=== PATIENT | male | born 1940 | race Caucasian/White ===

== ENCOUNTER → 2017-03-06 | Day surgery (SDC) | payer MEDICARE ==
[2017-03-01 15:36] VITALS: BMI 32.3
[~2017-03-06] MED LIST: BUPIVACAINE (PF) 0.25% 30 ML VIAL SQ ONE; DEXAMETHASONE SOD PHOSPHATE 10 MG/ML 1 ML VIAL IV ONE; GLYCOPYRROLATE 0.2 MG/ML 2 ML VIAL ONE; HEPARIN SODIUM,PORCINE 5,000 UNIT/ML 1 ML VIAL SQ ONE; HYDROcodone/APAP 5-325MG 1 EACH TAB PO PRN; KETOROLAC 30 MG/ML 1 ML VIAL ONE; LACTATED RINGERS 1,000 ML IV ONE; LIDOCAINE 1% 20 ML VIAL (10MG/ML) FOR IV START INTRADERMA ONE; LIDOCAINE 1% INJ 10MG/ML (20 ML MDV) ONE; MIDAZOLAM 2 MG/2 ML VIAL IV PRN; MIDAZOLAM 2 MG/2 ML VIAL ONE; NALOXONE 0.4 MG/ML 1 ML VIAL IV PRN; NEOSTIGMINE 1 MG/ML 10 ML VIAL ONE; ONDANSETRON 4 MG/2 ML VIAL IVP ONE; PROPOFOL 10 MG/ML 20 ML VIAL IV ONE; ROCURONIUM BROMIDE 10 MG/ML 10 ML VIAL IV ONE; SCOPOLAMINE 1.5MG/72HR PATCH TRANSDERM ONE; SUCCINYLCHOLINE CHLORIDE 100 MG/5 ML SYR IV ONE; TAMSULOSIN 0.4 MG CAP.ER.24H PO STA; ceFAZolin IN SWFI 2 GM/20 ML SYRINGE IVP ONE; fentaNYL (PF) 50 MCG/ML 2 ML AMP ONE
--- NOTE | 2017-03-06 09:45 | P.GSHP ---
History of Present Illness H&P Date: 03/06/17 Chief Complaint: Left inguinal hernia Patient underwent operative repair of a left inguinal hernia February 2016. This was done open with a 3" x 6" Prolene mesh. He had a indirect hernia sac that was ligated at that time. Recently he was seen back in the office complaining of a new bulge in the left groin. Some constipation at times. No nausea or vomiting. No testicular pain. Patient did have some issues with Dermabond last surgery and would like to avoid that again if possible. It should be noted that the indirect hernia last surgery was sliding and the sigmoid colon was adherent to the hernia sac. Past Medical History Past Medical History: Diabetes Mellitus, GERD/Reflux, Hypertension, Osteoarthritis (OA) Additional Past Medical History / Comment(s): hx. elevated uric acid, hx. PERIPHERAL EDEMA, diet controlled diabetes History of Any Multi-Drug Resistant Organisms: None Reported Past Surgical History: Hernia Repair, Joint Replacement, Tonsillectomy Additional Past Surgical History / Comment(s): BILATERAL KNEE REPLACEMENT, REDO ON RIGHT KNEE. Past Anesthesia/Blood Transfusion Reactions: No Reported Reaction Smoking Status: Former smoker - Past Family History Father Family Medical History: Cancer Additional Family Medical History / Comment(s): Colon Medications and Allergies Home Medications Medication Instructions Recorded Confirmed Type Allopurinol [Zyloprim] 300 mg PO QAM 06/18/14 03/01/17 History Aspirin 81 mg PO DAILY 06/18/14 03/01/17 History Furosemide [Lasix] 10 mg PO BID 06/18/14 03/01/17 History Losartan Potassium 100 mg PO QAM 06/18/14 03/01/17 History Meloxicam [Mobic] 7.5 mg PO BID 06/18/14 03/01/17 History Multivitamin [Men's Multi-Vitamin] 1 each PO DAILY 06/18/14 03/01/17 History Omeprazole 40 mg PO AC-BRKFST 06/18/14 03/01/17 History [place]-3 Fatty Acids [[place]-3] 1,000 mg PO DAILY 03/01/17 03/01/17 History Allergies Allergy/AdvReac Type Severity Reaction Status Date / Time adhesive tape AdvReac Rash/Hives Verified 03/01/17 15:32 Penicillins AdvReac CHILLS Verified 03/01/17 15:08 Surgical - Exam Physical exam: General: Well-developed, well-nourished HEENT: Normocephalic, sclerae nonicteric Abdomen: Nontender, nondistended, reducible left inguinal hernia Extremities: No edema Neuro: Alert and oriented Assessment and Plan (1) Left inguinal hernia Narrative/Plan: Patient with a recurrent left inguinal hernia after open repair. We'll proceed with laparoscopic da Siddharth assisted repair. Risks of bleeding, infection, bladder and bowel injury, recurrence, chronic pain, numbness, conversion were discussed. He understands and wishes to proceed. If a contralateral hernia is identified we'll repair that as well. Status: Acute Code(s): K40.90 - UNIL INGUINAL HERNIA, W/O OBST OR GANGR, NOT SPCF RECUR SNOMED Code(s): 524457179
[2017-03-06 13:17] VITALS: RESP 16
[2017-03-06] MEDS: LACTATED RINGERS 1,000 ML IV SCH ×2 (13:46→14:05)
[2017-03-06 13:47] LABS: Basophils # (A) 0.1 k/uL (0-0.2); Basophils % (A) 1 %; CH 31.2; CHCM 34.2; Eosinophils # (A) 0.3 k/uL (0-0.7); Eosinophils % (A) 4 %; HCT 44.9 % (39.0-53.0); HDW 3.07; Luc # (Auto) 0.12; Luc % (Auto) 2; Lymphocytes # (A) 1.4 k/uL (1.0-4.8); Lymphocytes % (A) 23 %; MCH 30.8 pg (25.0-35.0); MCHC 33.5 g/dL (31.0-37.0); MCV 91.9 fL (80.0-100.0); Mean Platelet Volume 8.8; Monocytes # (A) 0.3 k/uL (0-1.0); Monocytes % (A) 6 %; Neutrophils # (A) 3.8 k/uL (1.3-7.7); Neutrophils % (A) 65 %; RBC 4.88 m/uL (4.30-5.90); RDW 15.1 % (11.5-15.5); WBC (Perox) 6.26
[2017-03-06 13:50] LABS: Glucose,Whole Blood 110 mg/dL (75-99)
[2017-03-06 14:08] LABS: ALT 57 U/L (21-72); AST 40 U/L (17-59); Alkaline Phosphatase 80 U/L (38-126); Anion Gap 11 mmol/L; Blood Urea Nitrogen 21 mg/dL (9-20); Calcium 9.6 mg/dL (8.4-10.2); Carbon Dioxide 26 mmol/L (22-30); Chloride 106 mmol/L (98-107); Glucose 121 mg/dL (74-99); Non-African American GFR(MDRD) 58 (>60 ml/min/1.73 sqM); Potassium 4.6 mmol/L (3.5-5.1); Sodium 143 mmol/L (137-145); Total Protein 7.9 g/dL (6.3-8.2)
[2017-03-06 17:11] VITALS: TEMP 97.2
--- NOTE | 2017-03-06 17:13 | P.OP ---
Date of Procedure: 03/06/17 Procedure(s) Performed: PREOPERATIVE DIAGNOSIS: Recurrent left inguinal hernia POSTOPERATIVE DIAGNOSIS: Same PROCEDURE: Laparoscopic repair recurrent left inguinal hernia with the da Siddharth robot assistance with mesh SURGEON: Jackie EBL: Minimal ANESTHESIA: General COMPLICATIONS: None OPERATIVE PROCEDURE: Patient was placed in the operating table in the supine position. The patient was placed under general anesthesia. The patient was then placed in lithotomy. The abdomen was prepped and draped in usual sterile fashion. A small curvilinear supraumbilical incision was made. The fascia was retracted anteriorly with Phoenix forceps. The Veress needle was inserted. The saline drop test was normal. Insufflation took place to 15 mmHg. a 5 mm trocar was placed into the peritoneal cavity which was later switched to a 12 mm trocar. 2 additional 8 mm trochars were placed in the right upper quadrant and left upper quadrant under visualization. The robotic arms were then brought in and docked into place. The fenestrated bipolar was used in the left arm and the laparoscopic timothy was utilized in the right arm. A 30 12 mm scope was used in the up position. The peritoneal cavity was inspected. The patient had evidence of a recurrent left inguinal hernia. A large portion of the sigmoid colon was adherent to the hernia sac and making up a good portion of the recurrent hernia. The amount of colon within the hernia was approximately 10-15 cm. The patient's right side was also inspected. There was a small depression at the internal inguinal ring consistent with a very early internal inguinal hernia. He was decided that given the patient's age and the small nature of this depression that we would leave this intact. The peritoneum was incised in a horizontal fashion cephalad to the internal inguinal ring. Following that careful dissection of the preperitoneal space took place. This took place using both electrocautery, sharp dissection but primarily blunt dissection. Visualization of the pubic tubercle and Mawxell's ligament took place medially. Full dissection took place laterally as well. The patient's hernia was able to be reduced. The dissection took place down to and overlying the iliac vessels. A small tear in the peritoneum did take place during this dissection which was later closed using a short running 3-0 Vicryl stitch. Once we had adequate space the 15 x 10 progrip mesh was advanced into the preperitoneal space and flattened out appropriately to cover all potential hernia sites. No sutures were used. The peritoneal defect was then closed using a locking 2-0 VLok suture. The pneumoperitoneum was then evacuated. The fascia at the 12 mm site was closed using the Jose Pelaez technique and an 0 Vicryl stitch. The skin of all 3 sites was closed using a 4-0 Monocryl stitch. Steri-Strips and sterile dressings were applied. DISPOSITION: Stable to recovery room
[2017-03-06] MEDS: HYDROmorphone 0.5 MG/0.5 ML SYRINGE IVP PRN ×4 (17:20→17:43)
[2017-03-06 18:22] LABS: Glucose,Whole Blood 165 mg/dL (75-99)
[2017-03-06 18:37] VITALS: BP 96/51; PULSE 80
== END ==
LOC: OR 11:41
PROVIDERS: ATTEND Surgery
DX: K40.91 Unilateral inguinal hernia, without obstruction or gangrene, recurrent (principal); E11.9 Type 2 diabetes mellitus without complications; K21.9 Gastro-esophageal reflux disease without esophagitis; I10 Essential (primary) hypertension; M19.90 Unspecified osteoarthritis, unspecified site; Z96.653 Presence of artificial knee joint, bilateral; Z87.891 Personal history of nicotine dependence; Z79.82 Long term (current) use of aspirin; Z79.899 Other long term (current) drug therapy; Z88.0 Allergy status to penicillin; Z91.048 Other nonmedicinal substance allergy status
CPT/HCPCS: 93005; 80053; 85025; 49651; C1781; J2250; J1644; J1100; J2710; J0690; J2405; J2001; J3010; J1885; J0330; J2704; J1170

== ENCOUNTER 2018-04-13 20:17 | Emergency (ER) | payer MEDICARE ==
[2018-04-13 20:29] VITALS: RESP 16; TEMP 97.7
--- NOTE | 2018-04-13 21:40 | ED ---
Lower Extremity Injury HPI - General Chief Complaint: Extremity Injury, Lower Stated Complaint: Fall, knee injury Time Seen by Provider: 04/13/18 20:46 Source: patient, EMS Mode of arrival: EMS Limitations: no limitations - History of Present Illness Initial Comments: 78-year-old male patient presents to the emergency department today for evaluation of left knee pain and swelling after rinsing a fall. Patient states he was cleaning up a mass on the floor, bending forward when he lost his balance and fell for checking his knee on a cabinet. Patient states that he does have history of total knee arthroplasty to this leg. Patient states that at rest the leg does hurt whenever he attempts to straighten it fully or ambulate he does have increased pain to the bilateral lateral knee. Denies any numbness or tingling to the leg. Patient denies hitting his head or losing consciousness with the fall. States he does take a blood thinning medication, but again denies any head injury. Patient denies any headache, neck pain, back pain, chest pain, shortness of breath, dizziness, weakness, abdominal pain, nausea, vomiting, or difficulties with bowel movements or urination. - Related Data Home Medications Medication Instructions Recorded Confirmed Allopurinol [Zyloprim] 300 mg PO QAM 06/18/14 04/13/18 Losartan Potassium 100 mg PO QAM 06/18/14 04/13/18 Meloxicam [Mobic] 7.5 mg PO BID 06/18/14 04/13/18 Multivitamin [Men's Multi-Vitamin] 1 tab PO DAILY 06/18/14 04/13/18 Omeprazole 40 mg PO AC-BRKFST 06/18/14 04/13/18 Aspirin EC [Ecotrin Low Dose] 81 mg PO DAILY 04/13/18 04/13/18 Cholecalciferol [Vitamin D3] 5,000 unit PO DAILY 04/13/18 04/13/18 Furosemide [Lasix] 20 mg PO BID 04/13/18 04/13/18 [place] 3-6-9 1 cap PO BID 04/13/18 04/13/18 Previous Rx's Medication Instructions Recorded Acetaminophen-Codeine 300-30mg 1 tab PO Q6H PRN #12 tablet 04/13/18 [Tylenol #3] Allergies Allergy/AdvReac Type Severity Reaction Status Date / Time adhesive tape AdvReac Rash/Hives Verified 04/13/18 20:41 Penicillins AdvReac CHILLS Verified 04/13/18 20:41 Review of Systems ROS Statement: Those systems with pertinent positive or pertinent negative responses have been documented in the HPI. ROS Other: All systems not noted in ROS Statement are negative. Past Medical History Past Medical History: Diabetes Mellitus, GERD/Reflux, Hypertension, Osteoarthritis (OA) Additional Past Medical History / Comment(s): hx. elevated uric acid, hx. 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 Vital signs upon presentation are temperature 97.7F, pulse 91, respirations 16, blood pressure 132/67, pulse ox 95% on room air.) Eye exam: Present: normal appearance, PERRL, EOMI. Absent: scleral icterus, conjunctival injection, periorbital swelling Neck exam: Present: normal inspection, full ROM, other (Nontender, no step-off, no deformity to firm midline palpation of the posterior cervical spine. Full range of motion without pain or limitation.). Absent: tenderness, meningismus, lymphadenopathy Respiratory exam: Present: normal lung sounds bilaterally. Absent: respiratory distress, wheezes, rales, rhonchi, stridor Cardiovascular Exam: Present: regular rate, normal rhythm, normal heart sounds. Absent: systolic murmur, diastolic murmur, rubs, gallop, clicks GI/Abdominal exam: Present: soft, normal bowel sounds. Absent: distended, tenderness, guarding, rebound, rigid Extremities exam: Present: full ROM (Full range of motion however does report increased pain at full extension), tenderness (Tenderness over the medial and lateral left knee), normal capillary refill, other (Skin to the left lower external is pink, warm, and dry. Cap refills less than 2 seconds. Pedal and posttibial pulses are 2+ and equal bilaterally. Patient does have mild swelling surrounding the left anterior knee. No ecchymosis or surface trauma.). Absent: normal inspection, pedal edema, joint swelling, calf tenderness Back exam: Present: normal inspection, other (Nontender, no step-off, no deformity to firm midline palpation of the thoracic and lumbar vertebrae. Full range of motion without pain or limitation.). Absent: vertebral tenderness Neurological exam: Present: alert, oriented X3, CN II-XII intact Psychiatric exam: Present: normal affect, normal mood Skin exam: Present: warm, dry, intact, normal color. Absent: rash Course Vital Signs 04/13/18 20:21 Temperature 97.7 F Pulse Rate 91 Respiratory 16 Rate Blood Pressure 132/67 O2 Sat by Pulse 95 Oximetry Medical Decision Making - Medical Decision Making 78 year-old male patient presented to the emergency department today for evaluation after expressing a fall knee injury. Physical examination did reveal some soft tissue swelling over the anterior aspect of the knee. Patient had no pain with valgus or varus maneuver. He did have full range of motion but did report increased pain with full extension. X-ray showed no acute osseous abnormalities. Prosthesis appeared to be in good position. No evidence of effusion. At time of discharge patient was unable to bear weight on the leg stating that the knee was giving out on him. We did perform CT of the knee was somewhat limited due to artifact however no showed no evidence of acute abnormalities. Did discuss findings and results with the patient. We did put any immobilizer, he is able to ambulate with this. He'll be discharged home to follow-up with his primary care physician for recheck in 1-2 days. Return parameters are discussed in detail. They verbalize understanding and agree with this plan. - Radiology Data Radiology results: report reviewed, image reviewed Reviews of left knee are obtained. Report was reviewed in its entirety. Impression by Dr. Chand shows no fracture seen. Soft tissue swelling calcification above the patella. CT left knee without contrast was obtained. Report is reviewed in its entirety. Impression by Dr. Chand shows limited exam shows no fracture. Prosthesis appears in good position. No sign of joint effusion. Disposition Clinical Impression: Contusion of left knee, Other instability, left knee Disposition: HOME SELF-CARE Condition: Good Instructions: Contusion in Adults (ED), Knee Pain (ED), Knee Immobilizer (ED) Additional Instructions: Use Jayesh wrap for comfort and support. Keep knee elevated. Rest. Follow-up with her primary care physician for recheck in 1-2 days. Have repeat x-rays performed in 7-10 days if pain symptoms persist. Return to the emergency department immediately for any new, worsening, or concerning symptoms. Prescriptions: Acetaminophen-Codeine 300-30mg [Tylenol #3] 1 tab PO Q6H PRN #12 tablet PRN Reason: Pain Is patient prescribed a controlled substance at d/c from ED?: No Referrals: Jovon Colorado MD [Primary Care Provider] - 1-2 days Time of Disposition: 00:28
--- NOTE | 2018-04-13 21:49 | XR ---
EXAMINATION TYPE: XR knee complete LT DATE OF EXAM: 04/13/2018 COMPARISON: NONE HISTORY: Knee pain TECHNIQUE: 3 views FINDINGS: There is left knee prosthesis. Components are in anatomic position. I see no fracture. Ther e is no sign of joint effusion. There is some calcification above the patella that could relate to an old injury. There is soft tissue swelling above the patella. IMPRESSION: No fracture seen. Soft tissue swelling and calcification above the patella.
[2018-04-13] MEDS ORDERED: ACET/COD 300 MG/30 MG STARTER PACK 6 TAB BTL PO STA (22:38)
--- NOTE | 2018-04-13 23:45 | CT ---
EXAMINATION TYPE: CT knee LT wo con DATE OF EXAM: 04/13/2018 COMPARISON: HISTORY: left knee pain after twisting injury CT DLP: 305.3 mGycm Automated exposure control for dose reduction was used. FINDINGS: Exam is limited by metal artifact. There is a left knee prosthesis. There is some calcification in th e soft tissues above the patella. I see no sign of joint effusion. I see no fracture. I see no focal bone destruction. The prosthesis components appear in anatomic position. IMPRESSION: LIMITED EXAM SHOWS NO FRACTURE. PROSTHESIS APPEARS IN GOOD POSITION.
[2018-04-14 01:13] VITALS: BP 122/72; PULSE 84
== END 2018-04-14 00:43 | disposition home or self-care (01) ==
LOC: EC 20:17
DX: S80.02XA Contusion of left knee, initial encounter (principal); I10 Essential (primary) hypertension; K21.9 Gastro-esophageal reflux disease without esophagitis; E11.9 Type 2 diabetes mellitus without complications; M19.90 Unspecified osteoarthritis, unspecified site; Z87.891 Personal history of nicotine dependence; Z88.0 Allergy status to penicillin; Z91.048 Other nonmedicinal substance allergy status; Z79.1 Long term (current) use of non-steroidal anti-inflammatories (NSAID); Z79.82 Long term (current) use of aspirin; Z79.899 Other long term (current) drug therapy; Z96.653 Presence of artificial knee joint, bilateral; W01.0XXA Fall on same level from slipping, tripping and stumbling without subsequent striking against object, initial encounter; Y93.E5 Activity, floor mopping and cleaning; Y92.009 Unspecified place in unspecified non-institutional (private) residence as the place of occurrence of the external cause
CPT/HCPCS: 73562; 73700; 99284; L1830

== ENCOUNTER → 2022-10-24 | Outpatient (CLI) | payer MEDICARE ==
[2022-10-24 16:07] LABS: Blood Urea Nitrogen 25.2 mg/dL (9.0-27.0); Carbon Dioxide 26.3 mmol/L (21.6-31.8); Chloride 103 mmol/L (96-109); Potassium 4.9 mmol/L (3.5-5.5); Sodium 141 mmol/L (135-145)
[2022-10-24 16:54] LABS: HCT 48.1 % (39.6-50.0); HGB 16.1 d/dL (12.0-15.0); MCH 31.7 pg (27.0-32.0); MCHC 33.5 d/dL (32.0-37.0); MCV 94.7 FL (80.0-97.0); Mean Platelet Volume 12.6 FL (9.5-12.2); NRBC Per 100 WBC 0 X 10*3/uL (0.00-0.01); Platelet Count 163 X 10*3/uL (140-440); RBC 5.08 X 10*6/uL (4.40-5.60); RDW 14.6 % (11.5-14.5); WBC 6.93 X 10*3/uL (4.50-10.00)
== END | disposition home or self-care (01) ==
LOC: LABWHC1 11:26
PROVIDERS: ATTEND Internal Medicine Interventional Cardiology
DX: Z01.812 Encounter for preprocedural laboratory examination (principal); I25.10 Atherosclerotic heart disease of native coronary artery without angina pectoris
CPT/HCPCS: 36415; 80051; 82565; 84520; 85027

== ENCOUNTER → 2022-10-27 | Day surgery (SDC) | payer MEDICARE ==
[2022-10-24 09:12] VITALS: BMI 27.8
[~2022-10-27] MED LIST changes: +ALPRAZolam 0.25 MG TAB PO PRN; +ALPRAZolam 0.5 MG TAB PO PRN; +ASPIRIN 325 MG TAB PO STA; -BUPIVACAINE (PF) 0.25% 30 ML VIAL SQ ONE; -DEXAMETHASONE SOD PHOSPHATE 10 MG/ML 1 ML VIAL IV ONE; -GLYCOPYRROLATE 0.2 MG/ML 2 ML VIAL ONE; -HEPARIN SODIUM,PORCINE 5,000 UNIT/ML 1 ML VIAL SQ ONE; -HYDROcodone/APAP 5-325MG 1 EACH TAB PO PRN; -KETOROLAC 30 MG/ML 1 ML VIAL ONE; -LACTATED RINGERS 1,000 ML IV ONE; -LIDOCAINE 1% 20 ML VIAL (10MG/ML) FOR IV START INTRADERMA ONE; -LIDOCAINE 1% INJ 10MG/ML (20 ML MDV) ONE; -MIDAZOLAM 2 MG/2 ML VIAL IV PRN; -MIDAZOLAM 2 MG/2 ML VIAL ONE; -NALOXONE 0.4 MG/ML 1 ML VIAL IV PRN; -NEOSTIGMINE 1 MG/ML 10 ML VIAL ONE; +NITROGLYCERIN SL TABS 0.4 MG TAB SUBLINGUAL PRN; -ONDANSETRON 4 MG/2 ML VIAL IVP ONE; -PROPOFOL 10 MG/ML 20 ML VIAL IV ONE; -ROCURONIUM BROMIDE 10 MG/ML 10 ML VIAL IV ONE; -SCOPOLAMINE 1.5MG/72HR PATCH TRANSDERM ONE; +SODIUM CHLORIDE 0.9% 1,000 ML in EMPTY BAG 1 BAG IV SCH; -SUCCINYLCHOLINE CHLORIDE 100 MG/5 ML SYR IV ONE; -TAMSULOSIN 0.4 MG CAP.ER.24H PO STA; -ceFAZolin IN SWFI 2 GM/20 ML SYRINGE IVP ONE; -fentaNYL (PF) 50 MCG/ML 2 ML AMP ONE
[2022-10-27 08:14] LABS: Glucose,Whole Blood 136 mg/dL (70-110)
== END ==
LOC: CATHCVL 07:45
PROVIDERS: ATTEND Internal Medicine Interventional Cardiology
DX: I25.10 Atherosclerotic heart disease of native coronary artery without angina pectoris (principal); I10 Essential (primary) hypertension; E78.5 Hyperlipidemia, unspecified; E11.9 Type 2 diabetes mellitus without complications; I73.9 Peripheral vascular disease, unspecified; F17.210 Nicotine dependence, cigarettes, uncomplicated; Z79.899 Other long term (current) drug therapy

== ENCOUNTER 2022-10-28 09:46 | Day surgery (SDC) | payer MEDICARE ==
[~2022-10-28 09:46] MED LIST changes: +ATORVASTATIN 80 MG TAB PO STA; +HEPARIN SODIUM,PORCINE 10,000 UNIT in SODIUM CHLORIDE 0.9% 1,000 ML IRRIGATION PRN; -SODIUM CHLORIDE 0.9% 1,000 ML in EMPTY BAG 1 BAG IV SCH
[2022-10-28] MEDS ORDERED: SODIUM CHLORIDE 0.9% 1,000 ML IV ONE (09:56)
[2022-10-28 10:14] LABS: Glucose,Whole Blood 134 mg/dL (70-110)
[2022-10-28 10:15] VITALS: RESP 16
[2022-10-28] MEDS ORDERED: VERAPAMIL 2.5 MG/ML 2 ML AMP ONE (12:14)
[2022-10-28] MEDS ORDERED: HEPARIN SODIUM 1,000 UN/ML (10ML VL) ONE (12:23)
[2022-10-28] MEDS ORDERED: MIDAZOLAM 2 MG/2 ML VIAL IVP ONE (12:40)
[2022-10-28] MEDS ORDERED: LIDOCAINE 1% INJ 10MG/ML (5 ML VIAL-PF) SQ ONE (12:43)
[2022-10-28] MEDS ORDERED: VERAPAMIL SYRINGE (5 MG/10 ML) INTRAARTER ONE (12:46)
[2022-10-28] MEDS ORDERED: CLOPIDOGREL 75 MG TAB ONE (13:03)
[2022-10-28] MEDS ORDERED: CLOPIDOGREL 75 MG TAB PO ONE (13:05)
[2022-10-28] MEDS ORDERED: NITROGLYCERIN 1000MCG/10ML SYRINGE INTRACORON ONE (13:25)
[2022-10-28] MEDS ORDERED: IOPAMIDOL-370 100ML BTL INJ ONE (13:26)
[2022-10-28] MEDS ORDERED: ASPIRIN 81 MG PO PRN (13:42)
[2022-10-28] MEDS ORDERED: RX INFO: IV CONTRAST WAS GIVEN 1 EACH MISC MISCELLANE PRN (13:43)
[2022-10-28] MEDS ORDERED: MAG HYDROX/AL HYDROX/SIMETH 30 ML CUP PO PRN (13:43)
[2022-10-28] MEDS ORDERED: ZOLPIDEM 5 MG TAB PO PRN (13:43)
[2022-10-28] MEDS ORDERED: ATROPINE SULFATE 0.1 MG/ML 10ML SYRINGE IV PRN (13:43)
[2022-10-28] MEDS ORDERED: NITROGLYCERIN SL TABS 0.4 MG TAB SUBLINGUAL PRN (13:43)
[2022-10-28] MEDS ORDERED: SODIUM CHLORIDE 0.9% 1,000 ML in EMPTY BAG 1 BAG IV SCH (13:45)
[2022-10-28] MEDS: SODIUM CHLORIDE 0.9% 1,000 ML in EMPTY BAG 1 BAG IV SCH ×3 (13:56→22:41)
[2022-10-28 17:18] LABS: Glucose,Whole Blood 98 mg/dL (70-110)
--- NOTE | 2022-10-28 18:49 | P.PCN ---
Date of Procedure: 10/28/22 Operative Findings: CARDIAC CATHETERIZATION AND PERCUTANEOUS CORONARY INTERVENTION PERFORMING PHYSICIAN: Richard Smith MD, RPVI PROCEDURE PERFORMED: 1. Selective right and left coronary angiogram 2. Left heart catheterization 4. Successful stenting of the proximal left anterior descending artery using 3.5 x 15 mm Xience BRUNILDA with an excellent angiographic results 5. Adjunctive use of intravascular imaging 6. Ultrasound guided access of the right radial artery INDICATION: The patient is a pleasant 82-year-old gentleman with a past medical history significant for hypertension and dyslipidemia as well as diabetes as well as valvular heart disease with aortic mitral regurgitation and severe pulmonary hypertension. He was seen in the office as recently for chest discomfort. He underwent further investigation including myocardial perfusion imaging stress test and that came in to be abnormal showing an inferior and lateral scar with anterior ischemia. In the light of that he was advised to undergo a heart catheterization COMPLICATION: None APPROACH: Right radial artery LEVEL OF SEDATION: Moderate with a sedation length of 45 minutes PROCEDURE DESCRIPTION: After obtaining an informed consent, the patient was brought to cardiac metallurgical lab technician. Local anesthesia was performed using lidocaine subcutaneously. The right radial artery was cannulated using Seldinger technique, the guidewire passed easily, following that we advanced a 5-Yemeni sheath dilator assembly, the wire and dilator were removed and sheath was flushed. Following that, 2 mg of verapamil along with 5000 unit heparin were given. Selective right and left coronary angiogram using a 6-Yemeni JR4 and JL 3.5 catheters. Following that we did left heart catheterization using 6-Yemeni pigtail catheter. The procedure was completed there was no complication. SELECTIVE CORONARY ANGIOGRAM: The right coronary artery: Large caliber vessel and a dominant vessel. The RCA is chronically occluded in the distal portion and fills by collateral from the left coronary system. The RCA is extremely calcified. Left main: Calcified was mild disease only. Bifurcates into an LCx and LAD The left circumflex: Large caliber vessel appears to be codominant vessel. The LCx appeared to be diffusely diseased up to about 50-60%. Gives rises into an OM1 which has a lesion appeared to be in the range of 60-70% and OM 2 which has a lesion appeared to be in the range of 99.9% but the artery only about 2 mm in diameter. The left anterior descending artery: The proximal LAD has a focal lesion appears to be in the range of 80%. After that the LAD has mild to moderate disease only. The LAD gives rises into the first diagonal branch which has an ostial lesion appears to be in the range of 50% and second diagonal branch which has mild disease only. HEMODYNAMICS: LVEDP was about 12 mmHg was no significant gradient across aortic valve PCI OF PADMINI LAD: Anticoagulation was initiated using heparin with continuous ACT monitoring. Subsequently I did engage the left main using JL 3.5 guiding catheter. I did wire the LAD using a run-through wire. Intravascular ultrasound was performed with manual pullback and that showed a diameter of the LAD around 3.5 mm. The LAD was calcified. At that point I did predilatation using 3 mm balloon and then I deployed 3.5 x 15 mm stent where the stent was positioned under fluoroscopy guidance and deployed under its nominal pressure. Please note that I had difficulties advancing the stent over the wire but I was able to get the stent to the proximal LAD with adjunctive use of guide liner. After that I postdilated the stent using 3.75 mm noncompliant balloon after intravascular ultrasound was performed. The balloon was inflated under 16 christoph for 20 seconds. Final angiogram was performed and showed an excellent angiographic results and the procedure was completed was no complication CONCLUSION: 1. Critical disease involving the proximal LAD was a focal lesion. I did perform successful stenting of the LAD 2. Intermediate to severe diffuse disease involving the AV groove left circumflex with severe disease involving OM1 and OM 2 3. Chronic total occlusion of the right coronary artery POSTPROCEDURE MANAGEMENT: Dual antiplatelet therapy using Aspirin and Plavix for 12 months
[2022-10-28] MEDS ORDERED: ATORVASTATIN 80 MG TAB PO SCH (21:00)
[2022-10-28] MEDS: CHOLECALCIFEROL 125 MCG (5000 IU) TABLET PO SCH (21:17)
[2022-10-28] MEDS: FAMOTIDINE 20 MG TAB PO SCH (21:17)
[2022-10-28] MEDS: TAMSULOSIN 0.4 MG CAP.ER.24H PO SCH (21:17)
[2022-10-29 08:04] VITALS: BP 94/53; PULSE 72; TEMP 97.6
[2022-10-29 08:55] LABS: African American GFR (CKD) 56 (>60 ml/min/1.73 sqM); Non-African American GFR(CKD) 48 (>60 ml/min/1.73 sqM)
[2022-10-29] MEDS ORDERED: allopurinoL 300 MG TAB PO SCH (09:00)
[2022-10-29] MEDS ORDERED: DAPAGLIFLOZIN PROPANEDIOL 10 MG TABLET PO SCH (09:00)
[2022-10-29] MEDS ORDERED: CLOPIDOGREL 75 MG TAB PO SCH (09:00)
[2022-10-29] MEDS ORDERED: LOSARTAN 50 MG TAB PO SCH (09:00)
[2022-10-29] MEDS ORDERED: FUROSEMIDE 40 MG TAB PO SCH (09:00)
[2022-10-29] MEDS: FAMOTIDINE 20 MG TAB PO SCH (09:26)
[2022-10-29] MEDS: TAMSULOSIN 0.4 MG CAP.ER.24H PO SCH (09:27)
[2022-10-29] MEDS: CHOLECALCIFEROL 125 MCG (5000 IU) TABLET PO SCH (09:27)
[2022-10-30] MEDS ORDERED: FAMOTIDINE 20 MG TAB PO SCH (09:00)
--- NOTE | 2022-10-31 07:01 | P.DS ---
Providers Attending physician: Richard Smith Consults: 10/28/22 13:43 Consult Physician Routine Consulting Provider: [facility] Consult Reason/Comments: Post Interventional patient Do you want consulting provider notified?: Already Contacted Primary care physician: Wicho Lubin [place] [facility] Course: The patient is a pleasant 82-year-old gentleman who was admitted to the hospital on October 28 and underwent a heart catheterization and stenting of the proximal left anterior descending artery with a good angiographic results He was seen today, October 29, 2022. He is asymptomatic. He is hemodynamically stable. The right radial site is soft and nontender with a good pulse. The patient is going to be discharged home on dual antiplatelet therapy and I will follow-up with the patient next week in the office Patient Condition at Discharge: Good Plan - Discharge Summary Discharge Rx Participant: No New Discharge Prescriptions: New Clopidogrel [Plavix] 75 mg PO DAILY #0 tablet Atorvastatin [Lipitor] 80 mg PO HS #0 tab No Action allopurinoL [Zyloprim] 300 mg PO QAM Losartan Potassium 100 mg PO QAM Empagliflozin [Jardiance] 25 mg PO DAILY Tamsulosin [Flomax] 0.4 mg PO BID Furosemide [Lasix] 40 mg PO DAILY Cholecalciferol [Vitamin D3 (125 Mcg = 5000 Iu)] 125 mcg PO BID Famotidine [Pepcid] 40 mg PO BID Aspirin 81 mg PO DAILY PRN PRN Reason: Pre-Op Discharge Medication List Losartan Potassium 100 mg PO QAM 06/18/14 [History] allopurinoL [Zyloprim] 300 mg PO QAM 06/18/14 [History] Cholecalciferol [Vitamin D3 (125 Mcg = 5000 Iu)] 125 mcg PO BID 10/24/22 [History] Empagliflozin [Jardiance] 25 mg PO DAILY 10/24/22 [History] Famotidine [Pepcid] 40 mg PO BID 10/24/22 [History] Furosemide [Lasix] 40 mg PO DAILY 10/24/22 [History] Tamsulosin [Flomax] 0.4 mg PO BID 10/24/22 [History] Aspirin 81 mg PO DAILY PRN 10/28/22 [History] Atorvastatin [Lipitor] 80 mg PO HS #0 tab 10/29/22 [Rx] Clopidogrel [Plavix] 75 mg PO DAILY #0 tablet 10/29/22 [Rx] Follow up Appointment(s)/Referral(s): Richard Smith MD [STAFF PHYSICIAN] - 1 Week (APPOINTMENT MADE ON October @ 3:00PM) Patient Instructions/Handouts: Moderate Sedation (ED), After Radial Heart Catheterization (GEN) Activity/Diet/Wound Care/Special Instructions: *NO LIFTING, PUSHING, OR PULLING ANYTHING OVER 5 POUNDS FOR 5 DAYS *NO DRIVING FOR 3 DAYS *YOU CAN REMOVE YOUR DRESSING AND SHOWER TOMORROW BUT DO NOT SUBMERSE YOUR PUNCTURE SITE IN WATER FOR A FEW DAYS TO PREVENT INFECTION - SO NO TUB BATHS, POOLS, HOT TUBS, DISHES...ETC *ANY SIGNS OF BLEEDING (HARDNESS, SWELLING, OR EXCESSIVE BRUISING) HOLD DIRECT PRESSURE ON YOUR PUNCTURE SITE AND COME TO THE NEAREST EMERGENCY ROOM TO GET YOUR PUNCTURE SITE LOOKED AT - DO NOT DRIVE YOURSELF! EITHER CALL EMS OR HAVE SOMEONE DRIVE YOU! Discharge Disposition: HOME SELF-CARE
== END 2022-10-29 10:26 | disposition home or self-care (01) ==
LOC: CATHCVL 09:46 → 6NMEDSUR 13:39 → CATHCVL 10-29 10:26
PROVIDERS: ATTEND Internal Medicine Interventional Cardiology
DX: I25.10 Atherosclerotic heart disease of native coronary artery without angina pectoris (principal); I25.82 Chronic total occlusion of coronary artery; I10 Essential (primary) hypertension; I08.3 Combined rheumatic disorders of mitral, aortic and tricuspid valves; I45.10 Unspecified right bundle-branch block; I27.20 Pulmonary hypertension, unspecified; E78.5 Hyperlipidemia, unspecified; E11.51 Type 2 diabetes mellitus with diabetic peripheral angiopathy without gangrene; Z79.82 Long term (current) use of aspirin; Z79.02 Long term (current) use of antithrombotics/antiplatelets; Z79.84 Long term (current) use of oral hypoglycemic drugs; Z79.899 Other long term (current) drug therapy; Z88.1 Allergy status to other antibiotic agents; Z88.8 Allergy status to other drugs, medicaments and biological substances; Z91.040 Latex allergy status
CPT/HCPCS: 92978; 93458; 99152; 99153 ×2; 94760; 82565; C9600; C1887 ×2; C1769 ×2; C1894; C1725 ×2; C1753; C1874; J2250; J2001; J1644; Q9967

== ENCOUNTER 2024-09-13 16:16 | Emergency (ER) | payer MEDICARE ==
--- NOTE | 2024-09-13 17:13 | ED ---
Abdominal Pain HPI - General Source: patient, RN notes reviewed Mode of arrival: ambulatory Limitations: no limitations <Swathi Snow - Last Filed: 09/13/24 17:12> <Cj Hudson - Last Filed: 09/15/24 18:47> - General Chief Complaint: Abdominal Pain Stated Complaint: Abd pain Time Seen by Provider: 09/13/24 17:12 - History of Present Illness Initial Comments: Quick [id number] male presenting for abdominal pain x 5 hours with associated nausea. Reports pain in the center of the abdomen that radiates to the right side. States he was sent from urgent care for imaging of the abdomen. (Swathi Snow) 84-year-old male presenting with chief complaint of abdominal pain. Pain sta rted today. Located in the center of the abdomen just above the bellybutton. He does notice a bulge in this area, he is unsure if this is new or has been previously present. He admits to nausea with no vomiting. He is having regular bowel movements. He was seen at urgent care for this pain and advised to come to the ER for imaging. He does have history of hernias with repair performed by Dr. Mejia. (Cj Hudson) - Related Data Home Medications Medication Instructions Recorded Confirmed Losartan Potassium 100 mg PO QAM 06/18/14 10/28/22 allopurinoL [Zyloprim] 300 mg PO QAM 06/18/14 10/28/22 Cholecalciferol [Vitamin D3 (125 125 mcg PO BID 10/24/22 10/28/22 Mcg = 5000 Iu)] Empagliflozin [Jardiance] 25 mg PO DAILY 10/24/22 10/28/22 Famotidine [Pepcid] 40 mg PO BID 10/24/22 10/28/22 Furosemide [Lasix] 40 mg PO DAILY 10/24/22 10/28/22 Tamsulosin [Flomax] 0.4 mg PO BID 10/24/22 10/28/22 Aspirin 81 mg PO DAILY PRN 10/28/22 10/28/22 Previous Rx's Medication Instructions Recorded Atorvastatin [Lipitor] 80 mg PO HS #0 tab 10/29/22 Clopidogrel [Plavix] 75 mg PO DAILY #0 tablet 10/29/22 Allergies Allergy/AdvReac Type Severity Reaction Status Date / Time daptomycin AdvReac Unknown iv rx was Verified 09/13/24 16:27 stopped immediately- pt does not know reaction vancomycin AdvReac Unknown iv vanco Verified 09/13/24 16:27 was stopped immediately-unsure of reaction adhesive tape AdvReac Rash/Hives Verified 09/13/24 16:27 latex AdvReac Itching Verified 09/13/24 16:27 Penicillins AdvReac CHILLS Verified 09/13/24 16:27 Review of Systems ROS Other: All systems not noted in ROS Statement are negative. <SnowSwathi - Last Filed: 09/13/24 17:12> ROS Other: All systems not noted in ROS Statement are negative. <Cj Hudson - Last Filed: 09/15/24 18:47> ROS Statement: Those systems with pertinent positive or pertinent negative responses have been documented in the HPI. Past Medical History Past Medical History: Cancer, Diabetes Mellitus, GERD/Reflux, Hypertension, Osteoarthritis (OA) Additional Past Medical History / Comment(s): gout, BPH., basal cell skin cancer., pt uses "advanced pneumatic compression system" for circulation., states occasional swelling ., See Cardiology H & P . 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 Past Anesthesia/Blood Transfusion Reactions: No Reported Reaction Past Psychological History: No Psychological Hx Reported Smoking Status: Former smoker Past Alcohol Use History: Rare Past Drug Use History: None Reported - Past Family History Father Family Medical History: Cancer Additional Family Medical History / Comment(s): Colon cancer Brother(s) Family Medical History: Cancer <EdySwathi - Last Filed: 09/13/24 17:12> General Exam Limitations: no limitations <Swathi Snow - Last Filed: 09/13/24 17:12> Limitations: no limitations General appearance: alert, in no apparent distress Head exam: Present: atraumatic, normocephalic, normal inspection Eye exam: Present: normal appearance, EOMI Neck exam: Present: normal inspection. Absent: meningismus Respiratory exam: Present: normal lung sounds bilaterally. Absent: respiratory distress, wheezes, rales, rhonchi, stridor Cardiovascular Exam: Present: regular rate, normal rhythm, normal heart sounds. Absent: systolic murmur, diastolic murmur, rubs, gallop, clicks GI/Abdominal exam: Present: soft, normal bowel sounds, hernia (ventral, just superior to umbilicus). Absent: distended, tenderness, guarding, rebound, rigid Neurological exam: Present: alert, oriented X3 Psychiatric exam: Present: normal affect, normal mood Skin exam: Present: warm, dry, normal color <Cj Hudson - Last Filed: 09/15/24 18:47> - General Exam Comments Initial Comments: Visual Physical Exam Vital signs reviewed General: Well-appearing, nontoxic, no acute distress. Head: Normocephalic, atraumatic Eyes: PERRLA, EOMI ENT: Airway patent Chest: Nonlabored breathing Skin: No visual rash, normal skin tone Neuro: Alert and oriented 3 Musculoskeletal: No gross abnormalities (Swathi Snow) Course Vital Signs 09/13/24 09/13/24 16:24 19:55 Temperature 97.5 F L 97.9 F Pulse Rate 76 74 Respiratory 22 18 Rate Blood Pressure 119/69 116/59 O2 Sat by Pulse 97 96 Oximetry Medical Decision Making <Swathi Snow - Last Filed: 09/13/24 17:12> - Lab Data Result diagrams: 09/13/24 17:40 09/13/24 17:40 <Cj Hudson - Last Filed: 09/15/24 18:47> - Medical Decision Making I completed the quick note portion of this chart signed Swathi Snow PA-C (Swathi Snow) Was pt. sent in by a medical professional or institution (Dr. PA, EXECUTIVE STAFF ASSISTANT, urgent care, hospital, or long-term...) When possible be specific @ -Urgent care Did you speak to anyone other than the patient for history (EMS, parent, family, police, friend...)? What history was obtained from this source @ - Did you review nursing and triage notes (agree or disagree)? Why? @ -I reviewed and agree with nursing and triage notes Were old charts reviewed (outside hosp., previous admission, EMS record, old EKG, old radiological studies, urgent care reports/EKG's, long-term records)? Report findings @ -No old charts were reviewed Differential Diagnosis (chest pain, altered mental status, abdominal pain women, abdominal pain men, vaginal bleeding, weakness, fever, dyspnea, syncope, headache, dizziness, GI bleed, back pain, seizure, CVA, palpatations, mental he alth, musculoskeletal)? @ -[facility] Differential Abdominal Pain Men: Appendicitis, cholecystitis, diverticulosis, ischemic bowel, pancreatitis, hepatitis, UTI, gastroenteritis, AAA, incarcerated hernia, bowel obstruction, constipation, inflammatory bowel, hepatitis, peptic ulcer disease, splenic infarction, perforated viscus, testicular torsion... This is not meant to be an all-inclusive list EKG interpreted by me (3pts min.). @ -As above X-rays interpreted by me (1pt min.). @ -None done CT interpreted by me (1pt min.). @ -CT shows no evidence for acute abdominal process. Ventral hernia containing loop of small bowel this can predispose this patient to small bowel obstruction. There is some fluid within the hernia sac. Posterior changes to the prostate. Nonobstructing left renal calculi. Simple appearing renal cortical cysts on the right U/S interpreted by me (1pt. min.). @ -None done What testing was considered but not performed or refused? (CT, X-rays, U/S, labs)? Why? @ -None What meds were considered but not given or refused? Why? @ -None Did you discuss the management of the patient with other professionals (professionals i.e. , PA, EXECUTIVE STAFF ASSISTANT, lab, RT, psych nurse, school social worker, pasta press operator, teacher, sales and service officer, case management specialist)? Give summary @ -No Was smoking cessation discussed for >3mins.? @ -No Was critical care preformed (if so, how long)? @ -No Were there social determinants of health that impacted care today? How? (Homelessness, low income, unemployed, alcoholism, drug addiction, transportation, low edu. Level, literacy, decrease access to med. care, alf, rehab)? @ -No Was there de-escalation of care discussed even if they declined (Discuss DNR or withdrawal of care, Hospice)? DNR status @ -No What co-morbidities impacted this encounter? (DM, HTN, Smoking, COPD, CAD, Cancer, CVA, ARF, Chemo, Hep., AIDS, mental health diagnosis, sleep apnea, morbid obesity)? @ -None Was patient admitted / discharged? Hospital course, mention meds given and route, prescriptions, significant lab abnormalities, going to OR and other pertinent info. @ -84-year-old male presenting with chief complaint of abdominal pain. Patient does also have a bulge from his abdomen just above his umbilicus. Workup was initiated by triage and patient was later placed in a hallway bed and evaluated by myself. CT shows a ventral hernia with a small loop of small bowel. On examination this is easily reducible. His lab work requires no immediate action. Lactic acid is 1.2. Patient is educated on today's findings. He has had previous hernias with repair performed by Dr. Delgado, he is instructed to follow-up with his surgeon. Educated on alarm symptoms that should prompt reevaluation and on how to check if the hernia is reducible. Follow-up with PCP. Report back to ER with any new or worsening symptoms. Discussed return parameters and answered all questions. Patient conveyed verbal understanding and agreed to the plan. I discussed this case in detail with my attending Dr. Cook Undiagnosed new problem with uncertain prognosis? @ -No Drug Therapy requiring intensive monitoring for toxicity (Heparin, Nitro, Insulin, Cardizem)? @ -No Were any procedures done? @ -No Diagnosis/symptom? @ -Hernia Acute, or Chronic, or Acute on Chronic? @ -Acute Uncomplicated (without systemic symptoms) or Complicated (systemic symptoms)? @ -Uncomplicated Side effects of treatment? @ -No Exacerbation, Progression, or Severe Exacerbation? @ -No Poses a threat to life or bodily function? How? (Chest pain, [place], [place], pneumonia, PE, COPD, DKA, ARF, appy, cholecystitis, CVA, Diverticulitis, Homicidal, Suicidal, threat to staff... and all critical care pts) @ -Unlikely (Cj Hudson) - Lab Data Lab Results 09/13/24 09/13/24 09/13/24 Range/Units 17:40 17:40 17:40 WBC 8.21 (4.50-10.00) 10*3/uL RBC 5.10 (4.40-5.60) 10*6/uL Hgb 16.4 (13.0-17.0) g/dL Hct 47.7 (39.6-50.0) % MCV 93.5 (80.0-97.0) fL MCH 32.2 H (27.0-32.0) pg MCHC 34.4 (32.0-37.0) g/dL Plt Count 152 (140-440) 10*3/uL MPV 11.3 (9.5-12.2) fL Immature Gran % (Auto) 0.5 % Neutrophils % 74.7 % Lymphocytes % 16.7 % Monocytes % 5.7 % Eosinophils % 1.8 % Basophils % 0.6 % Immature Gran # 0.04 (0.00-0.04) 10*3/uL Neutrophils # 6.13 (1.80-7.70) 10*3/uL Lymphocytes # 1.37 (0.90-5.00) 10*3/uL Monocytes # 0.47 (0.20-1.00) 10*3/uL Eosinophils # 0.15 (0.04-0.35) 10*3/uL Basophils # 0.05 (0.00-0.10) 10*3/uL Sodium 139 (137-145) mmol/L Potassium 4.1 (3.5-5.1) mmol/L Chloride 104 (98-107) mmol/L Carbon Dioxide 24 (22-30) mmol/L Anion Gap 11 mmol/L BUN 29 H (9-20) mg/dL Creatinine 1.34 H (0.66-1.25) mg/dL Est GFR (CKD-EPI)AfAm 57 (>60 ml/min/1.73 sqM) Est GFR (CKD-EPI)NonAf 49 (>60 ml/min/1.73 sqM) Glucose 123 H (74-99) mg/dL Plasma Lactic Acid [place] 1.2 (0.7-2.0) mmol/L Calcium 9.7 (8.4-10.2) mg/dL Total Bilirubin 1.7 H (0.2-1.3) mg/dL AST 32 (17-59) U/L ALT 27 (4-49) U/L Alkaline Phosphatase 101 (38-126) U/L Total Protein 7.7 (6.3-8.2) g/dL Albumin 4.9 (3.5-5.0) g/dL Lipase 290 (23-300) U/L Disposition <Swathi Snow - Last Filed: 09/13/24 17:12> Is patient prescribed a controlled substance at d/c from ED?: No Time of Disposition: 19:15 <Cj Hudson - Last Filed: 09/15/24 18:47> Clinical Impression: Ventral hernia Disposition: HOME SELF-CARE Condition: Good Instructions (If sedation given, give patient instructions): Ventral Hernia (ED) Additional Instructions: Follow-up with PCP and general surgery. Report back to ER with any new or worsening symptoms. Referrals: Wicho Parnell MD [Primary Care Provider] - 1-2 days Lio Mejia MD [Medical Doctor] - 1-2 days
[2024-09-13 17:49] LABS: Basophils # (A) 0.05 10*3/uL (0.00-0.10); Basophils % (A) 0.6 %; Eosinophils # (A) 0.15 10*3/uL (0.04-0.35); Eosinophils % (A) 1.8 %; HCT 47.7 % (39.6-50.0); HGB 16.4 g/dL (13.0-17.0); Lymphocytes # (A) 1.37 10*3/uL (0.90-5.00); Lymphocytes % (A) 16.7 %; MCH 32.2 pg (27.0-32.0); MCHC 34.4 g/dL (32.0-37.0); MCV 93.5 fL (80.0-97.0); Mean Platelet Volume 11.3 fL (9.5-12.2); Monocytes # (A) 0.47 10*3/uL (0.20-1.00); Monocytes % (A) 5.7 %; Neutrophils # (A) 6.13 10*3/uL (1.80-7.70); Neutrophils % (A) 74.7 %; Platelet Count 152 10*3/uL (140-440); RDW 13.8 % (11.5-14.5); WBC 8.21 10*3/uL (4.50-10.00)
[2024-09-13 17:59] LABS: ALT 27 U/L (4-49); AST 32 U/L (17-59); African American GFR (CKD) 57 (>60 ml/min/1.73 sqM); Albumin 4.9 g/dL (3.5-5.0); Alkaline Phosphatase 101 U/L (38-126); Anion Gap 11 mmol/L; Blood Urea Nitrogen 29 mg/dL (9-20); Calcium 9.7 mg/dL (8.4-10.2); Carbon Dioxide 24 mmol/L (22-30); Chloride 104 mmol/L (98-107); Glucose 123 mg/dL (74-99); Lipase 290 U/L (23-300); Non-African American GFR(CKD) 49 (>60 ml/min/1.73 sqM); Potassium 4.1 mmol/L (3.5-5.1); Sodium 139 mmol/L (137-145); Total Bilirubin 1.7 mg/dL (0.2-1.3); Total Protein 7.7 g/dL (6.3-8.2)
--- NOTE | 2024-09-13 18:42 | CT ---
EXAMINATION TYPE: CT abdomen pelvis w con DATE OF EXAM: 09/13/2024 6:28 PM COMPARISON: None. CLINICAL INDICATION: Male, 84 years old with history of Abdominal pain; abdominal pain since 1200, na usea TECHNIQUE: Axial CT abdomen pelvis w con;Sagittal and coronal reformats were created on a separate w orkstation. Contrast used:100ml mL of Isovue 300 with IV Contrast, (none if empty) Oral contrast used: without Oral Contrast (none if empty) CT DLP: 1301.5 mGycm, Automated exposure control for dose reduction was used. FINDINGS: LOWER CHEST: Unremarkable ABDOMEN LIVER: Unremarkable GALLBLADDER AND BILE DUCTS: Unremarkable. PANCREAS: Unremarkable. SPLEEN: Unremarkable. ADRENAL GLANDS: Unremarkable. KIDNEYS AND URETERS: No evidence of hydronephrosis or obstructing renal calculus. The ureters are unr emarkable. Nonobstructing left 3 mm calculi. Right renal cortical simple cyst. No follow-up recomm ended. PELVIS BLADDER: No evidence for wall thickening or mass given limitations of exam. REPRODUCTIVE: Postsurgical changes compatible with TURP to the prostate. ABDOMEN & PELVIS STOMACH AND BOWEL: No evidence of bowel obstruction. PERITONEUM/RETROPERITONEUM: No evidence of pneumoperitoneum or free fluid. VASCULATURE: No evidence of aortic aneurysm. MUSCULOSKELETAL: No acute osseous abnormalities. Moderate disc degeneration changes are present throu ghout the thoracolumbar spine. Grade 1 anterolisthesis of L4 and L5. Scoliosis changes to the spine. LYMPH NODES: No gross evidence for lymphadenopathy. SOFT TISSUE/ABDOMINAL WALL: Ventral wall hernia containing loop of small bowel. No evidence for obstr uction at this time. Small amount of fluid is seen within the hernia sac. IMPRESSION: 1. No evidence for acute abdominal process. 2. Ventral hernia containing loop of small bowel. This can predispose this patient small bowel obstr uction. There is some fluid within the hernia sac. Posterior changes to the prostate. 3. Nonobstructing left renal calculi. 4. Simple appearing renal cortical cysts on the right. No follow-up recommended. [facility], , 09/13/2024 6:40 PM
[2024-09-13 20:16] VITALS: BP 116/59; PULSE 74; RESP 18; TEMP 97.9
== END 2024-09-13 20:16 | disposition home or self-care (01) ==
LOC: EC 16:16
DX: K43.9 Ventral hernia without obstruction or gangrene (principal); Z87.891 Personal history of nicotine dependence; Z88.0 Allergy status to penicillin; Z88.1 Allergy status to other antibiotic agents; Z91.048 Other nonmedicinal substance allergy status; Z91.040 Latex allergy status
CPT/HCPCS: 36415; 80053; 83605; 83690; 85025; 74177; 99284; Q9967